=== PATIENT | female | born 1975 | race Caucasian/White ===

== ENCOUNTER 2021-07-26 13:59 | Emergency (ER) | payer OTHER ==
[~2021-07-26] VITALS: Ht 157.5 cm; Wt 63.0 kg
[2021-07-26] MEDS ORDERED: SYNTHROID50 MCG (14:16)
== END 2021-07-26 20:18 | disposition home or self-care (01) ==
LOC: ER 13:59
DX: D64.9 Anemia, unspecified (principal)

== ENCOUNTER 2023-09-04 10:06 | Outpatient (CLI) | payer OTHER ==
[~2023-09-04 10:06] MED LIST: SYNTHROID50 MCG
== END 2023-09-04 10:14 | disposition home or self-care (01) ==
LOC: RAD 10:06
DX: M18.12 Unilateral primary osteoarthritis of first carpometacarpal joint, left hand (principal)